=== PATIENT | male | born 1960 | race Caucasian/White ===

== ENCOUNTER 2017-03-29 09:45 | Emergency (ER) | payer BC ==
[2017-03-29] MEDS ORDERED: HYDROMORPHONE HCL INJ/PF 2 MG/ML AMPULE IV ONE ×2 (10:27→12:32)
[2017-03-29] MEDS ORDERED: ONDANSETRON HCL INJ/PF 4 MG/2 ML SDV IV ONE (10:27)
[2017-03-29] MEDS ORDERED: NORMAL SALINE 1000 ML 1,000 ML IV ONE (10:29)
--- NOTE | 2017-03-29 10:32 | ER Document Report ---
ED GI/ - General Chief Complaint: Flank Pain Stated Complaint: LEFT FLANK PAIN Time Seen by Provider: 03/29/17 10:15 Mode of Arrival: Ambulatory Information source: Patient Notes: 56-year-old male presents with left flank pain for the last 3 days. It has been a constant pain waxing and waning very sharp in nature when it is most severe. He reports a little bit of constipation but has not had any diarrhea. Denies hematuria or dysuria. Denies fever. Pain radiates from the left flank to the left abdomen and has a small amount of pain in his left testicle. No alleviating or exacerbating factors otherwise. Denies prior abdominal surgeries. Feels somewhat similar to a prior kidney stone he has had. TRAVEL OUTSIDE OF THE [place] IN LAST 30 DAYS: No - Related Data Allergies/Adverse Reactions: No Known Allergies Allergy (Unverified 03/29/17 10:02) Past Medical History - Social History Smoking Status: Never Smoker Family History: Arthritis, CAD, Hyperlipidemia, Hypertension, Malignancy Patient has suicidal ideation: No Patient has homicidal ideation: No - Past Medical History Cardiac Medical History: Reports: Hx Hypercholesterolemia Renal/ Medical History: Denies: Hx Peritoneal Dialysis Musculoskeltal Medical History: Reports Hx Arthritis, Reports Hx Musculoskeletal Trauma Traumatic Medical History: Reports: Hx Fractures Past Surgical History: Reports: Hx Adenoidectomy, Hx Inguinal Hernia, Hx Orthopedic Surgery, Hx Tonsillectomy - Immunizations Immunizations up to date: No Hx Diphtheria, Pertussis, Tetanus Vaccination: No Review of Systems - Review of Systems -: Yes All other systems reviewed and negative Physical Exam - Vital signs Vitals: Temp Pulse Resp BP Pulse Ox 97.8 F 81 16 122/94 H 98 03/29/17 10:01 03/29/17 10:01 03/29/17 10:01 03/29/17 10:01 03/29/17 10:01 Interpretation: Normal - Notes Notes: GENERAL: VS as per nursing doc. Well-appearing, well-nourished and in no acute distress. HEAD: Atraumatic, normocephalic. EYES: Pupils equal round and reactive to light, extraocular movements intact, sclera anicteric, no conjunctival injection or discharge. ENT: Nares patent, oropharynx clear without exudates, moist mucous membranes. NECK: Normal range of motion, supple without lymphadenopathy. LUNGS: Breath sounds clear to auscultation bilaterally and equal. No wheezes rales or rhonchi. HEART: Regular rate and rhythm without murmurs. ABDOMEN: Soft, mild left mid abdomen and lower quadrant tenderness, normoactive bowel sounds. No guarding, no rebound. No masses appreciated. No [place] sign. BACK: Moderate left CVA tenderness. EXTREMITIES: Normal range of motion, no calf tenderness, no edema. NEUROLOGICAL: Cranial nerves grossly intact. Normal speech. Normal sensory and motor exams. No gross cerebellar abnormalities. PSYCH: Normal mood, normal affect. SKIN: Warm, dry, normal turgor, no lesions noted. Course - Re-evaluation Re-evalutation: 03/29/17 12:33 Pain is starting to come back somewhat. There is a 4 mm left UPJ calculus noted. Please see report for further details. If we can get the pain under control we'll discharge patient home on medication for symptomatically relief. - Vital Signs Vital signs: Temp Pulse Resp BP Pulse Ox 97.8 F 75 16 122/94 H 97 03/29/17 10:02 03/29/17 10:02 03/29/17 10:02 03/29/17 10:02 03/29/17 10:02 - Laboratory Result Diagrams: 03/29/17 10:30 03/29/17 10:30 Laboratory results interpreted by me: 03/29/17 03/29/17 10:30 10:30 Plt Count 144 L Monocytes % 14.4 H Urine Blood LARGE H Ur Leukocyte Esterase TRACE H Discharge - Discharge Clinical Impression: Ureteral calculus, left Condition: Good Disposition: HOME, SELF-CARE Instructions: Kidney Stone ([facility]) Additional Instructions: Return for worsening or concern. Follow-up with urology. Prescriptions: Ondansetron [Zofran Odt 4 mg Tablet] 1 - 2 tab PO Q4H PRN #15 tab.rapdis PRN Reason: For Nausea/Vomiting Oxycodone HCl/Acetaminophen [Percocet 5-325 mg Tablet] 1 - 2 tab PO Q4H PRN #15 tablet PRN Reason: Tamsulosin HCl [Flomax 0.4 mg Cap.sr] 0.4 mg PO DAILY #7 cap.sr.24h Referrals: MIGUE ANDERSON MD [Primary Care Provider] - Follow up as needed ORION LOPEZ MD [JONH GARRETT] - Follow up as needed
[2017-03-29 11:05] LABS: ABSOLUTE EOSINOPHILS # (AUTO) 0.1 10^3/uL (0.0-0.6); ABSOLUTE LYMPHOCYTES (AUTO) 1.3 10^3/uL (0.5-4.7); ABSOLUTE NEUT (AUTO) 4.7 10^3/uL (1.7-8.2); BASOPHILS % (AUTO) 0.5 % (0-2); EOSINOPHILS % (AUTO) 0.8 % (0-6); HEMATOCRIT 43.1 % (37.9-51.0); HGB HCT DIFFERENCE 1.9; LYMPHOCYTES % (AUTO) 18.2 % (13-45); MEAN CORPUSCULAR HEMOGLOBIN 31.4 pg (27.0-33.4); MEAN CORPUSCULAR HGB CONC 34.9 g/dL (32.0-36.0); MEAN CORPUSCULAR VOLUME 90 fl (80-97); MONOCYTES % (AUTO) 14.4 % (3-13); RED BLOOD COUNT 4.79 10^6/uL (4.35-5.55); RED CELL DISTRIBUTION WIDTH 12.6 % (11.5-14.0); SEGMENTED NEUTROPHILS % (AUTO) 66.1 % (42-78); WHITE BLOOD COUNT 7.1 10^3/uL (4.0-10.5)
[2017-03-29 11:07] LABS: APPEARANCE,URINE CLEAR; BILIRUBIN,URINE NEGATIVE (NEGATIVE); GLUCOSE, URINE NEGATIVE (NEGATIVE); KETONES,URINE NEGATIVE (NEGATIVE); LEUKOCYTE ESTERASE,URINE TRACE (NEGATIVE); NITRITE,URINE NEGATIVE (NEGATIVE); PROTEIN,URINE NEGATIVE (NEGATIVE); URINE SPECIFIC GRAVITY 1.013; UROBILINOGEN,URINE NEGATIVE mg/dL (<2.0)
[2017-03-29 11:24] LABS: ANION GAP 10 (5-19); BLOOD UREA NITROGEN 14 mg/dL (7-20); CALCIUM 9.3 mg/dL (8.4-10.2); CARBON DIOXIDE 28 mmol/L (22-30); CHLORIDE 102 mmol/L (98-107); CREATININE RESULT 1.02 mg/dL (0.52-1.25); GLUCOSE 105 mg/dL (75-110); POTASSIUM 3.9 mmol/L (3.6-5.0); SODIUM 139.6 mmol/L (137-145)
[2017-03-29] MEDS ORDERED: KETOROLAC TROMETHAMINE INJ/PF 30 MG/1 ML SDV IV ONE (12:32)
[2017-03-29 13:25] VITALS: BP 133/80
== END 2017-03-29 13:24 | disposition home or self-care (01) ==
LOC: ER 09:45
DX: N20.1 Calculus of ureter (principal); R10.9 Unspecified abdominal pain; K59.00 Constipation, unspecified; E78.00 Pure hypercholesterolemia, unspecified
CPT/HCPCS: 96376; 99284; 96374; 96375; 36415; 85025; 80048; 81001; 74176; J1885; J1170; J2405; J7030

== ENCOUNTER 2018-01-22 17:57 | Observation (INO) | payer BC ==
[2018-01-22] MEDS ORDERED: ASPIRIN 81 MG TABLET, CHEWABLE PO ONE (18:47)
--- NOTE | 2018-01-22 19:01 | RADIOLOGY REPORT (SQ) ---
EXAM DESCRIPTION: CHEST SINGLE VIEW COMPLETED DATE/TIME: 01/22/2018 6:52 pm REASON FOR STUDY: cp COMPARISON: None. EXAM PARAMETERS: NUMBER OF VIEWS: One view. TECHNIQUE: Single frontal radiographic view of the chest acquired. RADIATION DOSE: NA LIMITATIONS: None. FINDINGS: LUNGS AND PLEURA: No opacities, masses or pneumothorax. No pleural effusion. MEDIASTINUM AND HILAR STRUCTURES: No masses. Contour normal. HEART AND VASCULAR STRUCTURES: Heart normal in size. Normal vasculature. BONES: No acute findings. HARDWARE: None in the chest. OTHER: No other significant finding. IMPRESSION: NO ACUTE RADIOGRAPHIC FINDING IN THE CHEST. TECHNICAL DOCUMENTATION: JOB ID: [id number] [employer]- All Rights Reserved Reading location - IP/workstation name: [email or web address]
[2018-01-22 19:29] LABS: ABSOLUTE EOSINOPHILS # (AUTO) 0.1 10^3/uL (0.0-0.6); ABSOLUTE MONOCYTES (AUTO) 0.9 10^3/uL (0.1-1.4); ABSOLUTE NEUT (AUTO) 4.2 10^3/uL (1.7-8.2); BASOPHILS % (AUTO) 0.6 % (0-2); EOSINOPHILS % (AUTO) 1.5 % (0-6); HEMOGLOBIN 13.9 g/dL (13.5-17.0); LYMPHOCYTES % (AUTO) 27.5 % (13-45); MEAN CORPUSCULAR HEMOGLOBIN 31.8 pg (27.0-33.4); MEAN CORPUSCULAR HGB CONC 34.8 g/dL (32.0-36.0); MEAN CORPUSCULAR VOLUME 91 fl (80-97); PLATELET COUNT 148 10^3/uL (150-450); RED BLOOD COUNT 4.38 10^6/uL (4.35-5.55); RED CELL DISTRIBUTION WIDTH 13.1 % (11.5-14.0); SEGMENTED NEUTROPHILS % (AUTO) 58.4 % (42-78); TOTAL CELLS COUNTED % (AUTO) 100 %; WHITE BLOOD COUNT 7.1 10^3/uL (4.0-10.5)
[2018-01-22 19:38] LABS: PROTHROMBIN TIME 12.8 SEC (11.4-15.4)
[2018-01-22 19:41] LABS: ALANINE AMINOTRANSFERASE 41 U/L (21-72); ALBUMIN 4.1 g/dL (3.5-5.0); ALKALINE PHOSPHATASE 36 U/L (38-126); ANION GAP 8 (5-19); ASPARTATE AMINO TRANSFERASE 28 U/L (17-59); BILIRUBIN,DIRECT 0.4 mg/dL (0.0-0.4); BILIRUBIN,TOTAL 0.6 mg/dL (0.2-1.3); BLOOD UREA NITROGEN 16 mg/dL (7-20); CALCIUM 9.2 mg/dL (8.4-10.2); CARBON DIOXIDE 24 mmol/L (22-30); CHLORIDE 106 mmol/L (98-107); CREATINE KINASE 93 U/L (55-170); GLUCOSE 85 mg/dL (75-110); TOTAL PROTEIN 6.7 g/dL (6.3-8.2)
--- NOTE | 2018-01-22 19:55 | ER Document Report ---
ED General - General Chief Complaint: Chest Pain Stated Complaint: CHEST PAIN Time Seen by Provider: 01/22/18 18:36 Mode of Arrival: Ambulatory Information source: Patient, Relative TRAVEL OUTSIDE OF THE [place] IN LAST 30 DAYS: No - HPI Patient complains to provider of: chest pain Onset/Duration: Gradual Quality of pain: Pressure Severity: Moderate Associated symptoms: Shortness of breath Exacerbated by: Other - exertion Relieved by: Denies Similar symptoms previously: No Recently seen / treated by doctor: No Notes: 57-year-old male states that he has chest pain. He states "let me just briefly tell you about today". Patient was in a fishing tournament and he was out on a boat. He states around 9 AM he began with some nausea as well as some pressure to his left flank and left testicle area with increased frequency of urination. He states he has had kidney stones in the past and that is what this felt like. He did take Motrin 800 mg. Patient states he continued on his fishing tournament without incident. He stated around 430 when he got back to the dock he "I started feeling funny" he states he had tingling to his lips and some heaviness in his chest area. He does admit that for the last few weeks he has had shortness of breath which is unusual for him and it has been worse with exertion. States he may drink socially alcohol once a month. He states he did have a beer at the end of his fishing trip today. He does not smoke. Past medical history significant for kidney stones borderline hypercholesterolemia and multiple arthroscopic procedures to his knees and shoulders as well as a right inguinal hernia repair and a right eye sx for pterygium. He currently denies chest pain. - Related Data Allergies/Adverse Reactions: No Known Allergies Allergy (Verified 01/22/18 17:58) Past Medical History - General Information source: Patient - Social History Smoking Status: Never Smoker Chew tobacco use (# tins/day): No Frequency of alcohol use: None Drug Abuse: None Lives with: Family Family History: Arthritis, CAD, Hyperlipidemia, Hypertension, Malignancy Patient has suicidal ideation: No Patient has homicidal ideation: No - Past Medical History Cardiac Medical History: Reports: Hx Hypercholesterolemia Pulmonary Medical History: Reports: None EENT Medical History: Reports: None Neurological Medical History: Reports: None Endocrine Medical History: Reports: None Renal/ Medical History: Reports: None, Hx Kidney Stones. Denies: Hx Peritoneal Dialysis Malignancy Medical History: Reports None GI Medical History: Reports: None Musculoskeltal Medical History: Reports Hx Arthritis, Reports Hx Musculoskeletal Trauma Skin Medical History: Reports None Psychiatric Medical History: Reports: None Past Surgical History: Reports: Hx Adenoidectomy, Hx Inguinal Hernia, Hx Orthopedic Surgery, Hx Tonsillectomy - Immunizations Immunizations up to date: No Hx Diphtheria, Pertussis, Tetanus Vaccination: No Review of Systems - Review of Systems Constitutional: No symptoms reported EENT: No symptoms reported Cardiovascular: See HPI Respiratory: See HPI Gastrointestinal: See HPI, Nausea Genitourinary: Frequency Male Genitourinary: Testicular pain - left-resolved Skin: No symptoms reported Hematologic/Lymphatic: No symptoms reported Neurological/Psychological: Tingling - lips Physical Exam - Vital signs Vitals: Temp Pulse Resp BP Pulse Ox 98.1 F 85 16 129/78 H 95 01/22/18 18:07 01/22/18 18:07 01/22/18 18:07 01/22/18 18:07 01/22/18 18:07 - Notes Notes: PHYSICAL EXAMINATION: GENERAL: Well-appearing, well-nourished and in no acute distress. HEAD: Atraumatic, normocephalic. EYES: Pupils equal round and reactive to light, extraocular movements intact, sclera anicteric, conjunctiva are normal. ENT: Nares patent, oropharynx clear without exudates. Moist mucous membranes. NECK: Normal range of motion, supple without lymphadenopathy LUNGS: Breath sounds clear to auscultation bilaterally and equal. No wheezes rales or rhonchi. HEART: Regular rate and rhythm without murmurs ABDOMEN: Soft, nontender, nondistended abdomen. No guarding, no rebound. No masses appreciated. Musculoskeletal: Normal range of motion, no pitting or edema. No cyanosis. NEUROLOGICAL: Cranial nerves grossly intact. Normal speech, normal gait. Normal sensory, motor exams PSYCH: Normal mood, normal affect. SKIN: Warm, Dry, normal turgor, no rashes or lesions noted. Course - Re-evaluation Re-evalutation: 01/22/18 19:58 Labs- All tests 24 hr 01/22/18 01/22/18 01/22/18 19:11 19:11 19:11 WBC 7.1 RBC 4.38 Hgb 13.9 Hct 40.0 MCV 91 MCH 31.8 MCHC 34.8 RDW 13.1 Plt Count 148 L Seg Neutrophils % 58.4 Lymphocytes % 27.5 Monocytes % 12.0 Eosinophils % 1.5 Basophils % 0.6 Absolute Neutrophils 4.2 Absolute Lymphocytes 2.0 Absolute Monocytes 0.9 Absolute Eosinophils 0.1 Absolute Basophils 0.0 PT 12.8 INR 0.90 Sodium 138.0 Potassium 4.0 Chloride 106 Carbon Dioxide 24 Anion Gap 8 BUN 16 Creatinine 1.03 Est GFR ( Amer) > 60 Est GFR (Non-Af Amer) > 60 Glucose 85 Calcium 9.2 Magnesium 1.9 Total Bilirubin 0.6 Direct Bilirubin 0.4 Neonat Total Bilirubin Not Reportable Neonat Direct Bilirubin Not Reportable Neonat Indirect Bili Not Reportable AST 28 ALT 41 Alkaline Phosphatase 36 L Creatine Kinase 93 Total Protein 6.7 Albumin 4.1 Chest X-Ray 01/22/18 18:37 IMPRESSION: NO ACUTE RADIOGRAPHIC FINDING IN THE CHEST. 01/22/18 21:11 Chest X-Ray 01/22/18 18:37 IMPRESSION: NO ACUTE RADIOGRAPHIC FINDING IN THE CHEST. Abdomen/Pelvis CT 01/22/18 20:23 IMPRESSION: Partially obstructing 3 x 3 x 6 mm left distal ureterolith. - Vital Signs Vital signs: Temp Pulse Resp BP Pulse Ox 98.1 F 85 16 129/78 H 94 01/22/18 18:07 01/22/18 18:07 01/22/18 18:07 01/22/18 18:07 01/22/18 19:00 - Laboratory Result Diagrams: 01/22/18 19:11 01/22/18 19:11 Laboratory results interpreted by me: 01/22/18 01/22/18 01/22/18 19:11 19:11 20:06 Plt Count 148 L Alkaline Phosphatase 36 L Urine Ascorbic Acid 40 H - Diagnostic Test Radiology reviewed: Image reviewed, Reports reviewed - EKG Interpretation by Me EKG shows normal: Sinus rhythm - 78 When compared to previous EKG there are: Previous EKG unavailable Additional EKG results interpreted by me: 01/22/18 19:59 NS STT changes Discharge - Discharge Clinical Impression: Left ureteral calculus, Chest pain Condition: Stable Disposition: ADMITTED OBSERVATION Admitting Provider: Hospitalist - Dr. Tejeda Unit Admitted: Telemetry Referrals: MIGUE ANDERSON MD [Primary Care Provider] - Follow up as needed
[2018-01-22 20:17] LABS: APPEARANCE,URINE CLEAR; BILIRUBIN,URINE NEGATIVE (NEGATIVE); COLOR,URINE YELLOW; GLUCOSE, URINE NEGATIVE (NEGATIVE); KETONES,URINE NEGATIVE (NEGATIVE); LEUKOCYTE ESTERASE,URINE NEGATIVE (NEGATIVE); NITRITE,URINE NEGATIVE (NEGATIVE); PROTEIN,URINE NEGATIVE (NEGATIVE); URINE SPECIFIC GRAVITY 1.029; UROBILINOGEN,URINE NEGATIVE mg/dL (<2.0)
--- NOTE | 2018-01-22 20:55 | RADIOLOGY REPORT (SQ) ---
EXAM DESCRIPTION: CT ABD/PELVIS NO ORAL OR IV COMPLETED DATE/TIME: 01/22/2018 8:36 pm REASON FOR STUDY: left flank pain COMPARISON: 03/29/2017 TECHNIQUE: CT scan of the abdomen and pelvis performed without intravenous or oral contrast. Images reviewed with lung, soft tissue, and bone windows. Reconstructed coronal and sagittal MPR images revi ewed. All images stored on PACS. All CT scanners at this facility use dose modulation, iterative reconstruction, and/or weight based d osing when appropriate to reduce radiation dose to as low as reasonably achievable (ALARA). [facility]: Dose Right [facility]: CareDose [facility]: Dose Right [facility]: Teradose 4D [facility]: Smart [employer] RADIATION DOSE: CT Rad equipment meets quality standard of care and radiation dose reduction techniq ues were employed. CTDIvol: 10.2 mGy. DLP: 549 mGy-cm.mGy. LIMITATIONS: None. FINDINGS: LOWER CHEST: No significant findings. No nodules or infiltrates. NON-CONTRASTED LIVER, SPLEEN, ADRENALS: Evaluation limited by lack of IV contrast. No identified sign ificant masses. PANCREAS: No masses. No peripancreatic inflammatory changes. GALLBLADDER: No identified stones by CT criteria. No inflammatory changes to suggest cholecystitis. RIGHT KIDNEY AND URETER: No suspicious masses. Assessment limited by lack of IV contrast. Re- demon stration of punctate nonobstructing nephroliths. Stable cortical cyst. No hydronephrosis or hydrou reter. LEFT KIDNEY AND URETER: No suspicious masses. Assessment limited by lack of IV contrast. Re- demons tration of punctate nonobstructing nephroliths. Mild hydronephrosis and ureterectasis on the basis of a 3 x 3 x 6 mm partially obstructing distal ureterolith. AORTA AND RETROPERITONEUM: No aneurysm. No retroperitoneal masses or adenopathy. BOWEL AND PERITONEAL CAVITY: No obvious masses or inflammatory changes. No free fluid. APPENDIX: Normal. PELVIS, BLADDER, AND ABDOMINAL WALL:No abnormal masses. No free fluid. Bladder normal. 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 OTHER: No other significant finding. IMPRESSION: Partially obstructing 3 x 3 x 6 mm left distal ureterolith. COMMENT: Quality ID # [id number]: Final reports with documentation of one or more dose reduction techniques (e.g., Automated exposure control, adjustment of the mA and/or kV according to patient size, use of iterative reconstruction technique) TECHNICAL DOCUMENTATION: JOB ID: [id number] [employer]- All Rights Reserved Reading location - IP/workstation name: [email or web address]
[2018-01-22] MEDS ORDERED: PROMETHAZINE HCL INJ 25 MG/1 ML VIAL IV PRN (21:24)
[2018-01-22] MEDS ORDERED: ALBUTEROL SULFATE 0.083% NEB 2.5 MG/3 ML AMPUL NEB PRN (21:24)
[2018-01-22] MEDS ORDERED: ACETAMINOPHEN 325 MG TABLET PO PRN (21:24)
[2018-01-22] MEDS: NORMAL SALINE 1000 ML 1,000 ML IV PRN (21:48)
[2018-01-22] MEDS: FENTANYL CITRATE INJ/PF 100 MCG/2 ML AMPUL IV PRN (21:48)
[2018-01-22] MEDS: HEPARIN SOD (PORCINE) 5,000 UNIT/ML 1 ML SYRINGE SUBCUT SCH (21:48)
--- NOTE | 2018-01-23 00:11 | PDOC H&P ---
History of Present Illness Admission Date/PCP: MIGUE ANDERSON MD Patient complains of: Chest tightness around 4:30 PM. History of Present Illness: NATALIE HERNANDEZ is a 57 year old male with history of bilateral nephrolithiasis and hyperlipidemia was admitted with above-mentioned complaint. According to the patient, he started having chest tightness around 4:30 PM while at rest. It was localized to the anterior chest wall and lasted about 2 hours with no alleviating or aggravating factors. He also felt some numbness around his mouth and in his right hand (he has chronic cervical spine problems). The pain was associated with shortness of breath, palpitations and lightheadedness but no nausea/vomiting or syncope. He apparently has been having intermittent chest pain lately. He denied any fever, chills or any cough or heartburns. He said he had some barbecue yesterday. Of note, the patient was also complaining of left-sided abdominal pain which he attributed it to passing kidney stones. He started having this pain around 9: 30 AM before he went fishing today. He took 800 mg of Motrin 1 which seemed to help. He currently complains of left-sided abdominal pain again. He also has dysuria but no hematuria which according to the patient are common symptoms when he is passing a kidney stone. In the ED, his temperature was 98.1, heart rate 85, respiratory rate 16, blood pressure 129/78 with oxygen saturation of 95% on room air. His initial troponin was negative and his UA was negative for krystal blood. He received aspirin 325 mg 1. Past Medical History Medical History: Other - According to the patient and based on previous records. Cardiac Medical History: Reports: Hyperlipidema Pulmonary Medical History: Reports: None EENT Medical History: Reports: None Neurological Medical History: Reports: None Endocrine Medical History: Reports: None Renal/ Medical History: Reports: None Malignancy Medical History: Reports: None GI Medical History: Reports: None Musculoskeltal Medical History: Reports: Arthritis Skin Medical History: Reports: None Psychiatric Medical History: Reports: None Past Surgical History Past Surgical History: Reports: Tonsillectomy Social History Lives with: Family Smoking Status: Never Smoker Frequency of Alcohol Use: Rare Hx Recreational Drug Use: No - Advance Directive Resuscitation Status: Full Code Family History Family History: Arthritis, CAD, Hyperlipidemia, Hypertension, Malignancy Parental Family History Reviewed: Yes - Father: CAD/DC in his 70s. Children Family History Reviewed: No Sibling(s) Family History Reviewed.: Yes Medication/Allergy Home Medications: Ibuprofen 800 mg PO Q8 #30 tablet 12/10/13 Ondansetron [Zofran Odt 4 mg Tablet] 1 tab PO Q6H #15 tab.rapdis 12/10/13 Oxycodone HCl/Acetaminophen [Percocet 5-325 mg Tablet] 1 tab PO Q6 PRN #15 tablet 12/10/13 Tamsulosin HCl [Flomax 0.4 mg Cap.sr] 0.4 mg PO DAILY #30 cap.sr.24h 12/10/13 Ondansetron [Zofran Odt 4 mg Tablet] 1 - 2 tab PO Q4H PRN #15 tab.rapdis Oxycodone HCl/Acetaminophen [Percocet 5-325 mg Tablet] 1 - 2 tab PO Q4H PRN #15 tablet 03/29/17 Tamsulosin HCl [Flomax 0.4 mg Cap.sr] 0.4 mg PO DAILY #7 cap.sr.24h 03/29/17 Allergies/Adverse Reactions: No Known Allergies Allergy (Verified 01/22/18 17:58) Review of Systems ROS unobtainable: Other - Pertinent positives and negatives as detailed in the HPI. The patient denied any abdominal pain, diarrhea constipation or any focal weakness. Physical Exam Vital Signs: Temp Pulse Resp BP Pulse Ox 98.1 F 85 16 129/78 H 94 01/22/18 18:07 01/22/18 18:07 01/22/18 18:07 01/22/18 18:07 01/22/18 19:00 Intake & Output 01/21/18 01/22/18 01/23/18 06:59 06:59 07:59 Weight 88.8 kg General appearance: PRESENT: no acute distress, well-developed, well-nourished Head exam: PRESENT: atraumatic, normocephalic Eye exam: PRESENT: PERRLA. ABSENT: scleral icterus Mouth exam: PRESENT: moist, neck supple Neck exam: PRESENT: full ROM. ABSENT: JVD Respiratory exam: PRESENT: clear to auscultation [place]. ABSENT: rales, rhonchi, wheezes Cardiovascular exam: PRESENT: RRR, +S1, +S2 Pulses: PRESENT: normal dorsalis pedis pul GI/Abdominal exam: PRESENT: normal bowel sounds, soft, tenderness. ABSENT: distended, rebound - Left-sided abdomen, rigid Rectal exam: PRESENT: deferred Extremities exam: PRESENT: full ROM. ABSENT: pedal edema Neurological exam: PRESENT: alert, altered, awake, oriented to person, oriented to place, oriented to time. ABSENT: motor sensory deficit Skin exam: PRESENT: dry, warm. ABSENT: erythema, rash Results Laboratory Results: 01/22/18 19:11 01/22/18 19:11 01/22/18 01/22/18 01/22/18 19:11 19:11 20:06 WBC 7.1 RBC 4.38 Hgb 13.9 Hct 40.0 MCV 91 MCH 31.8 MCHC 34.8 RDW 13.1 Plt Count 148 L Seg Neutrophils % 58.4 Lymphocytes % 27.5 Monocytes % 12.0 Eosinophils % 1.5 Basophils % 0.6 Absolute Neutrophils 4.2 Absolute Lymphocytes 2.0 Absolute Monocytes 0.9 Absolute Eosinophils 0.1 Absolute Basophils 0.0 Sodium 138.0 Potassium 4.0 Chloride 106 Carbon Dioxide 24 Anion Gap 8 BUN 16 Creatinine 1.03 Est GFR ( Amer) > 60 Est GFR (Non-Af Amer) > 60 Glucose 85 Calcium 9.2 Magnesium 1.9 Total Bilirubin 0.6 AST 28 ALT 41 Alkaline Phosphatase 36 L Total Protein 6.7 Albumin 4.1 Urine Color YELLOW Urine Appearance CLEAR Urine pH 5.0 Ur Specific [place] 1.029 Urine Protein NEGATIVE Urine Glucose (UA) NEGATIVE Urine Ketones NEGATIVE Urine Blood NEGATIVE Urine Nitrite NEGATIVE Ur Leukocyte Esterase NEGATIVE Urine WBC (Auto) 2 Urine RBC (Auto) 1 01/22/18 01/22/18 19:11 19:11 Creatine Kinase 93 Troponin I < 0.012 EKG Comments: 12 lead EKG: Sinus rhythm, ventricular rate 80, [place] 0, inverted T-wave in leads III and flat in aVF. No previous EKG to compare. Impressions: Chest X-Ray 01/22/18 18:37 IMPRESSION: NO ACUTE RADIOGRAPHIC FINDING IN THE CHEST. Abdomen/Pelvis CT 01/22/18 20:23 IMPRESSION: Partially obstructing 3 x 3 x 6 mm left distal ureterolith. Assessment & Plan - Diagnosis (1) Chest pain Is this a current diagnosis for this admission?: Yes Plan: Possibly cardiac. We will continue to cycle cardiac enzymes and repeat a 12- lead EKG. Will also check an fasting lipid profile and echocardiogram. If will be scheduled for a nuclear stress test if 2 negative troponins. (2) Left ureteral calculus Is this a current diagnosis for this admission?: Yes Plan: 3x3x6 mm partially obstructing, on CAT scan of the abdomen. Will continue IV hydration and start Flomax. UA negative. Urology may need to be consulted in a.m for further recommendations. - Time Time Spent: 50 to 70 Minutes Anticipated discharge: Home
[2018-01-23] MEDS: OXYCODONE-ACETAMINOPHEN 5-325 MG TABLET PO PRN ×3 (00:13→12:46)
[2018-01-23] MEDS ORDERED: INFLUENZA ADLT QUAD (36MOS+) 2017-18 VAC 0.5 ML SYR IM PRN (00:27)
[2018-01-23] MEDS: FENTANYL CITRATE INJ/PF 100 MCG/2 ML AMPUL IV PRN (00:34)
[2018-01-23] MEDS ORDERED: TAMSULOSIN HCL 0.4 MG CAP.SR.24H PO ONE ×2 (01:00→12:30)
[2018-01-23] MEDS ORDERED: LANSOPRAZOLE 30 MG TAB.RAP.DR PO SCH (06:00)
[2018-01-23] MEDS: HEPARIN SOD (PORCINE) 5,000 UNIT/ML 1 ML SYRINGE SUBCUT SCH ×2 (06:18→15:11)
[2018-01-23 08:03] LABS: HEMATOCRIT 39.2 % (37.9-51.0); HEMOGLOBIN 13.9 g/dL (13.5-17.0); MEAN CORPUSCULAR HEMOGLOBIN 32.1 pg (27.0-33.4); MEAN CORPUSCULAR HGB CONC 35.5 g/dL (32.0-36.0); MEAN CORPUSCULAR VOLUME 90 fl (80-97); PLATELET COUNT 124 10^3/uL (150-450); RED BLOOD COUNT 4.35 10^6/uL (4.35-5.55); RED CELL DISTRIBUTION WIDTH 12.5 % (11.5-14.0); WHITE BLOOD COUNT 5.1 10^3/uL (4.0-10.5)
[2018-01-23 08:26] LABS: CHOLESTEROL 194.05 mg/dL (0-200); TRIGLYCERIDES 142 mg/dL (<150)
[2018-01-23 08:28] LABS: ANION GAP 7 (5-19); BLOOD UREA NITROGEN 14 mg/dL (7-20); CALCIUM 8.7 mg/dL (8.4-10.2); CARBON DIOXIDE 26 mmol/L (22-30); CHLORIDE 106 mmol/L (98-107); GLUCOSE 89 mg/dL (75-110); SODIUM 139.2 mmol/L (137-145)
[2018-01-23 08:37] LABS: DIRECT LDL 128 mg/dL (<100)
[2018-01-23] MEDS ORDERED: ASPIRIN 325 MG TABLET, ENT COATED PO SCH (10:00)
--- NOTE | 2018-01-23 10:41 | EKG REPORT ---
SEVERITY:- BORDERLINE ECG - SINUS RHYTHM BORDERLINE T ABNORMALITIES, INFERIOR LEADS : Confirmed by: Adilene Bill 23-Jan-2018 10:40:57
--- NOTE | 2018-01-23 10:41 | PDOC PROGRESS REPORT ---
Subjective Progress Note for:: 01/23/18 Subjective:: Patient awake alert complains of persistent left-sided chest and flank pain. Denying shortness of breath, palpitations, nausea or vomiting. No overnight events, telemetry events, no new nursing issues. Cardiolite stress testing initiated. Reason For Visit: Left-sided chest and flank pain Physical Exam Vital Signs: Temp Pulse Resp BP Pulse Ox 97.3 F 69 16 129/84 H 98 01/23/18 08:05 01/23/18 08:05 01/23/18 08:05 01/23/18 08:05 01/23/18 08:05 Intake & Output 01/21/18 01/22/18 01/23/18 11:59 11:59 12:59 Intake Total 506 Output Total 200 Balance 306 Weight 90.1 kg General appearance: PRESENT: no acute distress, well-developed, well-nourished Head exam: PRESENT: atraumatic, normocephalic Eye exam: PRESENT: conjunctiva pink, EOMI, PERRLA. ABSENT: scleral icterus Ear exam: PRESENT: normal external ear exam Mouth exam: PRESENT: moist, tongue midline Neck exam: ABSENT: carotid bruit, JVD, lymphadenopathy, thyromegaly Respiratory exam: PRESENT: clear to auscultation marino. ABSENT: rales, rhonchi, wheezes Cardiovascular exam: PRESENT: RRR. ABSENT: diastolic murmur, rubs, systolic murmur Pulses: PRESENT: normal dorsalis pedis pul Vascular exam: PRESENT: normal capillary refill GI/Abdominal exam: PRESENT: normal bowel sounds, soft. ABSENT: distended, guarding, mass, organolmegaly, rebound, tenderness Rectal exam: PRESENT: deferred Extremities exam: PRESENT: full ROM. ABSENT: calf tenderness, clubbing, pedal edema Neurological exam: PRESENT: alert, awake, oriented to person, oriented to place , oriented to time, oriented to situation, CN II-XII grossly intact. ABSENT: motor sensory deficit Psychiatric exam: PRESENT: appropriate affect, normal mood. ABSENT: homicidal ideation, suicidal ideation Skin exam: PRESENT: dry, intact, warm. ABSENT: cyanosis, rash Results Laboratory Results: 01/23/18 07:28 01/23/18 07:28 01/23/18 01/23/18 01/23/18 07:28 07:28 07:28 WBC 5.1 RBC 4.35 Hgb 13.9 Hct 39.2 MCV 90 MCH 32.1 MCHC 35.5 RDW 12.5 Plt Count 124 L Sodium 139.2 Potassium 4.0 Chloride 106 Carbon Dioxide 26 Anion Gap 7 BUN 14 Creatinine 0.96 Est GFR ( Amer) > 60 Est GFR (Non-Af Amer) > 60 Glucose 89 Calcium 8.7 Triglycerides 142 Cholesterol 194.05 LDL Cholesterol Direct 128 H VLDL Cholesterol 28.0 HDL Cholesterol 37 L 01/23/18 01/23/18 01:15 07:28 Troponin I < 0.012 < 0.012 Impressions: Chest X-Ray 01/22/18 18:37 IMPRESSION: NO ACUTE RADIOGRAPHIC FINDING IN THE CHEST. Abdomen/Pelvis CT 01/22/18 20:23 IMPRESSION: Partially obstructing 3 x 3 x 6 mm left distal ureterolith. Assessment & Plan - Diagnosis (1) Chest pain Is this a current diagnosis for this admission?: Yes Plan: No telemetry events, risk factors of dyslipidemia. Cardiolite stress testing initiated, follow-up Cardiolite results. (2) Left ureteral calculus Is this a current diagnosis for this admission?: Yes Plan: With history of nephrolithiasis now complicated by hydronephrosis, and left- sided pain. urology consulted. (3) Hydronephrosis Is this a current diagnosis for this admission?: Yes Plan: No evidence of renal failure, partial obstruction with 3 x 3 x 6 mm stone identified. Urology consulted. Continue Flomax (4) Dyslipidemia Is this a current diagnosis for this admission?: Yes Plan: Education and increase Lipitor from 10-20 mg nightly consider high dose if Cardiolite positive. - Time Time Spent with patient: 15-24 minutes
--- NOTE | 2018-01-23 10:44 | EKG REPORT ---
SEVERITY:- BORDERLINE ECG - SINUS RHYTHM BORDERLINE T ABNORMALITIES, INFERIOR LEADS : Confirmed by: Adilene Bill 23-Jan-2018 10:43:35
[2018-01-23] MEDS: NORMAL SALINE 1000 ML 1,000 ML IV PRN (12:47)
[2018-01-23 12:56] VITALS: BP 120/77
--- NOTE | 2018-01-23 13:06 | DRAGON STRESS TEST REPORT ---
INTRAVENOUS LEXISCAN CARDIOLITE STRESS TEST USING SINGLE PHOTON EMMISION COMPUTERIZED TOMOGRAPHIC. DATE OF PROCEDURE: January 23, 2018, INDICATION : Chest pain CARDIAC RISK FACTORS: No risk factor reported on request from. RESTING EKG: Sinus rhythm without any baseline ST-T wave changes STRESS EKG: No significant changes noted with LexiScan bolus REASON FOR TERMINATION: Protocol. PROCEDURE REPORT: Baseline heart rate 75 beats per minute with blood pressure of 120/79. Patient had no significant complaints. Heart rate at 2 minutes post bolus 107 with a blood pressure of 112/78. 3 minutes post bolus heart rate 88 with blood pressure of 120/80. No significant EKG changes were noted. Patient had no significant complaints during the procedure or postprocedure. Patient injected with Aminophyllin 75 mg at 3 minutes or later after Lexiscan bolus. CONCLUSIONS: Normal EKG and hemodynamic response to IV LexiScan. NUCLEAR DATA: At rest the patient was given 13.28 millicuries of technetium 99 sestamibi injected intravenously. As per protocol rest gated SPECT images were obtained. On day of stress test, the patient was given intravenous LexiScan at a dose of 0.4 mg in 5 mL intravenously, followed by flush with normal saline. Subsequently the stress dose of 38.9 millicuries of technetium 99 sestamibi was injected intravenously. As per protocol stress gated images were obtained. NUCLEAR INTERPRETATION: Both raw and processed data were used for interpretation. Visual, qualitative, computer-generated quantitative data was used. There was good myocardial uptake of technetium compound. Motion artifact and soft tissue attenuations were noted. Increased visceral uptake was noted. No definitive areas of transient perfusion defect noted, No definitive areas of fixed perfusion defect or scars noted. EKG gated imaging showed LV EF at 56 %, rest and stress gated EF similar visually. T. I D. ratio was 1.16. Lung heart ratio noted to be within normal limits 0.29. No significant extracardiac and abnormal radiotracer activities were noted. RV free wall uptake was noted to be WNL. IMPRESSION: Also refer to comments under nuclear interpretation. Also test results needs to be interpreted in the context of pretest probability. 1. No definitive areas of transient perfusion defect noted. 2. There is no definitive scintigraphic evidence of myocardial infarction/scar. 3. EKG gated imaging shows left ventricular ejection fraction of approx. 56 %. 4. Clinical correlation requested as occasionally single vessel disease or balanced ischemia could be missed. In approximately 10% of the cases Lexiscan may not cause adequate vasodilatory stress. RECOMMENDATIONS: Aggressive risk factor modification and medical management. Further evaluation may be needed if continued symptoms or other high risk indicators are noted on clinical evaluation. Close cardiology follow-up is also recommended. Clinical correlation with echocardiogram derived ejection fraction. Inability to exercise by itself can lead to increased cardiovascular event risks. Consider cardiology consultation and or follow-up if clinically indicated. 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 MIRNA
--- NOTE | 2018-01-23 14:43 | PDOC CONSULTATION ---
Consultation Consult Date: 01/23/18 Attending physician:: BHARTI SAHA Consult reason:: Left distal ureter stone History of Present Illness Admission Date/PCP: 01/22/18 21:51 MIGUE ANDERSON MD Patient complains of: Flank pain/chest pain History of Present Illness: 57/M admitted thru [facility] yesterday c/o left flank and chest pain. Colicky. 10/10 at worst. Associated N/V. Has known history of bilateral renal calculus identified during eval with PMD. Cardiac eval during this hospitalization so far negative. Work up revealed a 6 mm stone in the distal left ureter of a possibly duplicated collecting system ( no contrast, difficult to identify confluence of ureters). Mild left upper pole moiety hydronephrosis. Currently he is comfortable on Percocet 5/325 q 6h prn. No fever. No LUTS. + h/o stones. Past Medical History Cardiac Medical History: Reports: Hyperlipidema Pulmonary Medical History: Reports: None EENT Medical History: Reports: None Neurological Medical History: Reports: None Endocrine Medical History: Reports: None Renal/ Medical History: Reports: Nephrolithiasis Denies: None Malignancy Medical History: Reports: None GI Medical History: Reports: None Musculoskeltal Medical History: Reports: Arthritis Skin Medical History: Reports: None Psychiatric Medical History: Reports: None Past Surgical History Past Surgical History: Reports: Orthopedic Surgery, Tonsillectomy Social History Information Source: Patient Lives with: Family Smoking Status: Never Smoker Frequency of Alcohol Use: Rare Hx Recreational Drug Use: No Hx Prescription Drug Abuse: No - Advance Directive Resuscitation Status: Full Code Family History Family History: Arthritis, CAD, Hyperlipidemia, Hypertension, Malignancy Parental Family History Reviewed: Yes Children Family History Reviewed: Yes Sibling(s) Family History Reviewed.: Yes Medication/Allergy Home Medications: Tamsulosin HCl [Flomax 0.4 mg Cap.sr] 0.4 mg PO DAILY #30 cap.sr.24h 12/10/13 Atorvastatin Calcium [Lipitor 10 mg Tablet] 20 mg PO QHS #30 tablet 01/23/18 Ibuprofen 800 mg PO Q8HP PRN 01/23/18 Allergies/Adverse Reactions: No Known Allergies Allergy (Verified 01/22/18 17:58) Review of Systems All systems: reviewed and no additional remarkable complaints except as stated - flank pain, chest pain Physical Exam Vital Signs: Temp Pulse Resp BP Pulse Ox 97.4 F 72 16 120/77 98 01/23/18 11:30 01/23/18 11:30 01/23/18 11:30 01/23/18 11:30 01/23/18 11:30 Intake & Output 01/22/18 01/23/18 01/24/18 05:59 06:59 06:59 Intake Total Output Total Balance Weight General appearance: PRESENT: no acute distress Head exam: PRESENT: atraumatic Eye exam: PRESENT: conjunctiva pink Mouth exam: PRESENT: moist Neck exam: PRESENT: full ROM Respiratory exam: PRESENT: unlabored. ABSENT: accessory muscle use Cardiovascular exam: PRESENT: RRR. ABSENT: bradycardia Pulses: PRESENT: normal radial pulses GI/Abdominal exam: PRESENT: soft. ABSENT: ascites Rectal exam: PRESENT: deferred Extremities exam: PRESENT: full ROM Musculoskeletal exam: PRESENT: full ROM Neurological exam: PRESENT: alert, awake Psychiatric exam: PRESENT: appropriate affect Results Laboratory Results: 01/23/18 07:28 01/23/18 07:28 01/23/18 01/23/18 01/23/18 07:28 07:28 07:28 WBC 5.1 RBC 4.35 Hgb 13.9 Hct 39.2 MCV 90 MCH 32.1 MCHC 35.5 RDW 12.5 Plt Count 124 L Sodium 139.2 Potassium 4.0 Chloride 106 Carbon Dioxide 26 Anion Gap 7 BUN 14 Creatinine 0.96 Est GFR ( Amer) > 60 Est GFR (Non-Af Amer) > 60 Glucose 89 Calcium 8.7 Triglycerides 142 Cholesterol 194.05 LDL Cholesterol Direct 128 H VLDL Cholesterol 28.0 HDL Cholesterol 37 L 01/23/18 01/23/18 01:15 07:28 Troponin I < 0.012 < 0.012 Impressions: Chest X-Ray 01/22/18 18:37 IMPRESSION: NO ACUTE RADIOGRAPHIC FINDING IN THE CHEST. Abdomen/Pelvis CT 01/22/18 20:23 IMPRESSION: Partially obstructing 3 x 3 x 6 mm left distal ureterolith. Status: Image reviewed by fl - 6 mm stone in the distal left ureter of a possibly duplicated collecting system (no contrast, difficult to identify confluence of ureters). Mild left upper pole moiety hydronephrosis. Bilateral calyceal tip calcifications. Rest per radiology. Assessment & Plan - Diagnosis (1) Chest pain Qualifiers: Chest pain type: unspecified Qualified Code(s): R07.9 - Chest pain, unspecified Is this a current diagnosis for this admission?: Yes Plan: Per hospitalist. (2) Hydronephrosis Qualifiers: Hydronephrosis type: with ureteral calculous obstruction Qualified Code(s) : N13.2 - Hydronephrosis with renal and ureteral calculous obstruction Is this a current diagnosis for this admission?: Yes (3) Left ureteral calculus Is this a current diagnosis for this admission?: Yes Plan: WBC, Cr and urine normal. Pain controlled. Continue Flomax. Recommend trial of passage therapy, strain urine. Follow up with urology [facility] as outpatient in 4 weeks with KUB to assess for stone passage/location. Report to ER for red flag symptoms (fever, intractable pain/vomiting, renal failure). - Time Time Spent: 30 to 50 Minutes Medications reviewed and adjusted accordingly: Yes Anticipated discharge: Home Within: within 24 hours - Inpatient Certification Based on my medical assessment, after consideration of the patient's comorbidities, presenting symptoms, or acuity I expect that the services needed warrant INPATIENT care.: Yes I certify that my determination is in accordance with my understanding of Medicare's requirements for reasonable and necessary INPATIENT services [42 CFR 412.3e].: Yes Medical Necessity: Need For Continuous Telemetry Monitoring - Plan Summary Plan Summary: See A&P
[2018-01-23] MEDS ORDERED: REGADENOSON INJ 0.4 MG/5 ML DISP.SYRIN IV ONE (16:07)
[2018-01-23] MEDS ORDERED: AMINOPHYLLINE INJ/PF 250 MG/10 ML SDV IV ONE (16:07)
[2018-01-23] MEDS ORDERED: TAMSULOSIN HCL 0.4 MG CAP.SR.24H PO SCH (18:00)
[2018-01-24] MEDS ORDERED: ATORVASTATIN CALCIUM 10 MG TABLET PO SCH (10:00)
== END 2018-01-23 17:00 | disposition home or self-care (01) ==
LOC: ER 17:57 → EH 21:51 → 3W 23:44
PROVIDERS: ADMIT Internal Medicine Geriatric Medicine; ATTEND Internal Medicine Geriatric Medicine
PROC: 3E0234Z Introduction of Serum, Toxoid and Vaccine into Muscle, Percutaneous Approach (ICD-10-PCS; principal; 2018-01-23)
DX: R07.89 Other chest pain (principal); N13.2 Hydronephrosis with renal and ureteral calculous obstruction; E78.5 Hyperlipidemia, unspecified; R06.02 Shortness of breath; R20.2 Paresthesia of skin; N50.812 Left testicular pain; R00.2 Palpitations; R42 Dizziness and giddiness; Z87.442 Personal history of urinary calculi; Z23 Encounter for immunization; Z98.890 Other specified postprocedural states; Z82.49 Family history of ischemic heart disease and other diseases of the circulatory system; M19.90 Unspecified osteoarthritis, unspecified site
CPT/HCPCS: 36415; 71045; 74176; 78452; 80048; 80053; 80061; 81001; 82550; 83735; 84484; 85025; 85027; 85379; 85610; 90686; 93005; 93010; 93017; 99285; A9500; G0378; J0280; J1644; J2785; J3010; J7030; Q9969